=== PATIENT | male | born 1965 | race Caucasian/White ===

== ENCOUNTER → 2023-05-03 07:16 | Outpatient (REF) | payer BC, SELFPAY | LOC: RAD 07:16 | PROVIDERS: ATTENDING PHYSICIAN Internal Medicine Rheumatology; FAMILY PHYSICIAN Family Medicine | DX: N18.9 Chronic kidney disease, unspecified (principal) | CPT/HCPCS: 76700 ==

== ENCOUNTER → 2023-06-23 14:36 | Outpatient (REF) | payer SELFPAY | LOC: RAD 14:36 | PROVIDERS: ATTENDING PHYSICIAN Physician Assistant Medical | DX: E78.2 Mixed hyperlipidemia (principal) | CPT/HCPCS: 75571 ==